=== PATIENT | female | born 1950 | race Caucasian/White ===

== ENCOUNTER → 2017-07-30 | Outpatient (CLI) | payer OTHER, MEDICAID ==
[~2017-07-30] MED LIST: ACETAMINOPHEN325 M1 PO; ADULT LOW DOSE81 MG PO; ANTIPYRINE-BENZ10 ML OT; APAP/CODEINE ELI5 M1 PO; BACTRIM DS TAB1 EACH PO; CHERACOL COUGH120 ML PO; CLINDAMYCI75 MG/5 M1 PO; HYDROCODONE-AP1 EAC6 PO; IBUPROFEN 600600 M1 PO; LOVENOX SC; MEDROL DOSPAK21 TA1 PO; MEDROL DOSPAK21 TAB PO; NOHOMEMEDICATIONS; NORCO 5-325 TA1 EACH PO; OMEPRAZOLE 20 M20 M1 PO; OXYCODONE HCL5 M1 PO; ROLAIDS CHEWAB1 EACH PO; TESSALON PERLE100 MG PO; ZOFRAN4 MG PO; ZPAK PO
== END ==
LOC: M.RAD 11:35
DX: J11.1 Influenza due to unidentified influenza virus with other respiratory manifestations (principal); J98.11 Atelectasis

== ENCOUNTER → 2018-02-04 | Outpatient (CLI) | payer MEDICARE, MEDICAID | LOC: M.RAD 11:50 | DX: M77.32 Calcaneal spur, left foot (principal); M79.672 Pain in left foot ==

== ENCOUNTER → 2018-09-26 | Outpatient (CLI) | payer MEDICARE, MEDICAID | LOC: M.RAD 14:30 | DX: M85.89 Other specified disorders of bone density and structure, multiple sites (principal); Z78.0 Asymptomatic menopausal state ==

== ENCOUNTER 2019-02-09 07:18 | Inpatient (IN) | payer MEDICARE, MEDICAID ==
[2019-01-31 10:32] LABS: ABSOLUTE BASOPHILS 0.1 thou/uL (0.0-0.2); ABSOLUTE EOSINOPHILS 0.2 thou/uL (0.0-0.7); ABSOLUTE LYMPHOCYTES 1.7 thou/uL (0.8-5.3); ABSOLUTE MONOCYTES 0.3 thou/uL (0.0-1.2); ABSOLUTE NEUTROPHILS 3.5 thou/uL (1.6-8.1); BASOPHILS 1.8 %; EOSINOPHILS 2.7 %; HEMATOCRIT 43.4 % (37.0-47.0); HEMOGLOBIN 14.3 gm/dL (12.0-15.0); MCV 78.6 fL (80.0-100.0); MONOCYTES 4.8 %; MPV 6.8 fl. (7.2-11.1); NUCLEATED RBCS 0 /100WBC; PLATELET COUNT* 262 thou/uL (150-400); POLYS 60.7 %; RBC 5.52 mil/uL (4.20-5.00); RDW-CV 15.9 % (10.5-14.5); WBC 5.8 thou/uL (4.0-11.0)
[2019-01-31 10:36] LABS: CALCIUM 8.5 mg/dL (8.5-10.1); CREATININE 1.1 mg/dL (0.6-1.3); POTASSIUM 3.3 mmol/L (3.5-5.1)
[2019-01-31 10:37] LABS: APTT 28.9 Seconds (25.0-31.3); INR 1.1; PROTIME 10.8 Seconds (9.20-11.50)
[2019-01-31 10:41] LABS: ALBUMIN 3.3 g/dL (3.4-5.0); TOTAL BILIRUBIN 0.7 mg/dL (<0.1-1.0); TOTAL PROTEIN 7.3 g/dL (6.4-8.2)
[2019-01-31 11:28] LABS: ESR (SEDRATE) 5 mm/hr (0-30)
--- NOTE | 2019-01-31 12:15 | EKG ---
[place] [address] ELECTROCARDIOGRAM REPORT Name: ABRILLAYNE Room: [facility]#: [id number] Admission: Attend Phys: Robbie Munoz, Discharge: Date of : 46 Report #: [id number] THIS REPORT FOR: //name// [facility] Test Date: 2019-01-31 Test Time: 11:23:10 Pat Name: LAYNE SAMUELS Department: Room: Gender: F Row Boss Hoeing: : 1950 Requested By: Robbie Munoz Order Number: [id number] Reading MD: Erickson Villanueva Measurements Intervals [place] Rate: 77 P: 28 NM: 214 QRS: 14 QRSD: 99 T: 67 QT: 393 QTc: 445 Interpretive Statements Sinus rhythm Borderline prolonged NM interval Borderline T wave abnormalities Compared to ECG 01/27/2010 10:23:15 T-wave abnormality now present Sinus bradycardia no longer present Electronically Signed On 01-31-2019 12:15:11 CDT by Erickson Villanueva [email or web address] <ELECTRONICALLY SIGNED> By: Erickson Villanueva MD, [facility] 01/31/19 1215 1123 [id number] Erickson Villanueva MD, [facility] /EPI
[~2019-02-09] VITALS: Ht 175.3 cm; Wt 81.2 kg
[2019-02-09 07:49] VITALS: BP 138/101
[2019-02-09 13:30] VITALS: BP 128/65
[2019-02-09 16:49] VITALS: BP 130/85
--- NOTE | 2019-02-09 17:40 | NUR ---
SHEREE TARRIVED FROM SURGERY THIS AFTERNOON. PATIENT RESTING IN BED. PATIENT HAS DENIED ANY PAIN. PATIENT UP WITH PHYSICAL THERAPY TO BEDSIDE COMMODE, TOLERATED WELL. PATIENT HAS FAIR APPETITE. PATIENT DENIES ANY NEEDS AT THIS TIME. CALL LIGHT WITHIN REACH. WILL CONTINUE TO MONITOR.
[2019-02-09 20:05] VITALS: BP 140/82
[2019-02-10] VITALS: BP 142/91
[2019-02-10 04:00] VITALS: BP 115/76
--- NOTE | 2019-02-10 04:23 | NUR ---
PATIENT HAS REMAINED ALERT AND ORIENTED X 4 THROUGHOUT THE SHIFT AND RESTING WELL ON HOURLY ROUNDS. ROOM AIR WITH CONTINUOUS PULSE-OX. SATS GREATER THAN 92%. VITAL SIGNS STABLE. DRESSING RIGHT KNEE CLEAN AND DRY. BILAT KARINA HOSE AND FOOT PUMPS. ICE PACK TO INCISION. PATIENT HAS BEEN VERY ACTIVE IN BED EXERCISES INDEPENDENTLY( FOOT PUMPS AND QUAD SETS) AND USING INCENTIVE SPIROMETER WHEN AWAKE. MEDICATED FOR MINAMAL RIGHT KNEE PAIN X 2 THIS SHIFT TO GOOD EFFECT. CPM INITIATED HS WITH PATIENT TOLERATING WELL. UP TO BSC WITH MIN ASSIST, GAIT BELT AND WALKER. ADEQUATE VOIDS. PASSING GAS. NO NAUSEA. CONTINUE TO MONITOR.
[2019-02-10 04:40] LABS: ABSOLUTE LYMPHOCYTES 1.3 thou/uL (0.8-5.3); ABSOLUTE MONOCYTES 0.8 thou/uL (0.0-1.2); ABSOLUTE NEUTROPHILS 7.6 thou/uL (1.6-8.1); BASOPHILS 0.2 %; HEMATOCRIT 36.6 % (37.0-47.0); LYMPHOCYTES 13.6 %; MCH 25.6 pg (26.0-34.0); MCHC 32.7 g/dL (28.0-37.0); MCV 78.3 fL (80.0-100.0); MONOCYTES 8.1 %; MPV 7.1 fl. (7.2-11.1); NUCLEATED RBCS 0 /100WBC; PLATELET COUNT* 248 thou/uL (150-400); POLYS 78.1 %; RBC 4.68 mil/uL (4.20-5.00); WBC 9.7 thou/uL (4.0-11.0)
[2019-02-10 04:51] LABS: CALCIUM 8.4 mg/dL (8.5-10.1); CREATININE 0.9 mg/dL (0.6-1.3); MAGNESIUM 1.7 mg/dL (1.8-2.4)
[2019-02-10 07:50] VITALS: BP 121/79
--- NOTE | 2019-02-10 08:53 | OP ---
[address] [address] OPERATIVE REPORT Name: LAYNE SAMUELSN Room: [address] [place] .R.#: [id number] Admission: 02/09/19 Attend Phys: Tay Jones Discharge: Date of : 46 Report #: [id number] THIS REPORT FOR: //name// CC: Samra Iniguez DICTATED BY: Gagan Spaulding DO DATE OF SERVICE: 02/09/2019 PREOPERATIVE DIAGNOSIS: Right knee severe degenerative joint disease. POSTOPERATIVE DIAGNOSIS: Right knee severe degenerative joint disease. OPERATION PERFORMED: Right total knee arthroplasty. SURGEON: Robbie Munoz DO. ASSISTANTS: Gagan Spaulding DO and Vince Landry DO ANESTHESIA: General plus local infiltration. ESTIMATED BLOOD LOSS: 150 mL. ANTIBIOTICS: 2 grams IV Ancef given preoperatively. FINDINGS: Tricompartmental severe arthritic changes with mild valgus deformity. There was complete loss of cartilage on both the medial and lateral joints as well as patellofemoral involvement. DRAINS: None. SPECIMENS: None. COMPLICATIONS: None. CONDITION: Stable. DISPOSITION: PACU to Ortho floor. IMPLANTS: The MicroPort Evolution total knee system was utilized with the following components: 1. A size 5 cruciate retained femoral component. 2. A size 5 tibial baseplate. 3. A 12 mm thick ultrahigh molecular weight polyethylene insert. 4. A size 32 mm tri-peg patellar component. [facility] [address] [place] [address] OPERATIVE REPORT Name: LAYNE SAMUELS Room: [address] M.R.#: [id number] Admission: 02/09/19 Attend Phys: Tay Jones Discharge: Date of : 46 Report #: [id number] 5. We used Yanet Simplex bone cement with tobramycin. OPERATIVE INDICATIONS: The patient is a pleasant 68-year-old female who had had longstanding right knee pain. She had severe degenerative joint disease, which was confirmed on x-ray findings. She has tried and failed conservative treatment over the years including intra-articular steroid injections and PRP injections, anti-inflammatory medications by mouth, and activity modifications, and physical therapy. She had had a previous left total knee arthroplasty and had done well with this. She did get to the point where she was requesting operative treatment. Risks, indications, and treatment alternatives were once again reviewed with the patient. The patient showed good understanding and elected to proceed with the operation as planned today. DESCRIPTION OF PROCEDURE: The patient was identified in the preoperative holding area where her questions were answered. The right knee was confirmed by the patient to be the operative side marked. She was transferred to the operating suite and placed on the operating room table in the supine position where general anesthesia was then induced. A well-padded pneumatic tourniquet was placed on the right proximal thigh, this was inflated to 300 mmHg for a total of 73 minutes throughout the procedure. The right lower extremity was then sterilely prepped and draped in the usual fashion. A time-out was then performed to confirm that our safety checklist had been completed and everyone in room was in agreement. A standard midline incision was marked out over the anterior aspect of the knee. Sharp dissection was then carried down through the skin and the subcutaneous tissues down to the level of the extensor mechanism. A new blade was then used to make a standard medial parapatellar arthrotomy. A small flap was developed on the subperiosteal proximal tibia. The anterior meniscus was excised. The patella was then everted and the knee was hyperflexed. The entry drill was used on the distal femur to gain access to the femoral canal. The intramedullary distal femur cutting block was then placed and pinned into position. This was set to resect 12 mm at 5 degrees of valgus. This was confirmed to be an appropriate cut with an tomy wing. The cut was then made with a reciprocating saw and this bony cut surface was removed. We then sized the femur anterior to posterior utilizing the sizing guide. The 3-degree external rotation holes were then drilled, these were confirmed to be in appropriate rotation in relation to the transepicondylar and posterior condylar axis. The appropriate 4-in-1 cutting block was then impacted on to the distal femur and the cuts were made sequentially through the block beginning with anterior, then posterior, and then the chamfer cuts. This did give a nice flush cut surface with the anterior cortex and appropriate resection of the posterior condyles. The bony cut surfaces were then removed. We then proceeded to our proximal tibia cut. The extramedullary tibial guide was aligned in all planes and pinned into position. We confirmed appropriate resection with an tomy wing as well as a drop jose de jesus. The collateral ligaments were protected as were the popliteal structures and the patellar tendon. The cut was then made through the capture block with the reciprocating saw. [place] [address] OPERATIVE REPORT Name: LAYNE SAMUELS Room: [address] [place] .R.#: [id number] Admission: 02/09/19 Attend Phys: Tay Jones Discharge: Date of : 46 Report #: [id number] then removed. At this time we removed all the excess osteophytes as well as the ACL, PCL and meniscal remnants. The knee was taken in full extension and the extension block was found to fit snugly though we did have full extension. The knee was then once again taken to full flexion, the proximal tibia was sized and the tibial baseplate was pinned into position confirming the appropriate rotation with the drop jose de jesus. The femur trial was then impacted into position and the trochlear cut was made through the trial implants. The trochlea insert was then placed. The 10 mm spacer was then placed and the knee was taken through full range of motion and found to have full extension and was balanced in both the sagittal and coronal planes. Attention was then taken to the patella where there were significant degenerative changes. We did proceed with resurfacing. The freehand technique was used with a reciprocating saw to resect approximately 8 mm thickness of bone. The patella was then sized and the peg holes were drilled through the guide. The appropriate sized patellar button trial was then placed through full range of motion and found to be tracking appropriately. This was then removed as well was the trial insert and the trial femur. The knee was hyperflexed. The proximal tibia was then prepared for final implantation by reaming and punching the proximal tibia. All the trial implants were then removed and the knee was thoroughly lavaged utilizing the pulsatile lavage. The posterior capsule was injected with the anesthetic cocktail. This was also spread throughout the periosteum and some of the surrounding subcutaneous tissues. The bone cement was mixed on the backtable, the bony cut surfaces were well dried and exposed. The bone cement was then applied to the undersurface of the final components as well as pressurized within the inner stitches of the bone. The final implants were then impacted in position beginning with the tibia, followed by the femur and finally the patella was clamped into position. All the excess bone cement was then removed. The 12 mm insert was placed and the knee was found to have full extension and was both balanced in the sagittal and coronal planes. The knee was held in full extension and pressurized while the cement was allowed to dry. Topical TXA was placed at this time and allowed to sit for at least 5 minutes. Once the bone cement was completely dry, the knee was taken once again through range of motion. The trial insert was removed and the final 12 mm insert was placed. The knee was finally taken through range of motion and found to have full flexion, extension and balance in the sagittal and coronal planes. The knee was once again copiously irrigated. The tourniquet was deflated, there was minimal bleeding, this was controlled with cautery. The knee was then placed in 90 degrees of flexion and a layered closure was then performed beginning with #1 Vicryl in a [id number] fashion for the capsular layer, this was then reinforced with a running #1 Stratafix suture. The subcutaneous layer was then closed with buried interrupted 2-0 Vicryl sutures. The skin was then held together with a 3-0 Stratafix suture. Skin glue was then applied over the incision, this was allowed to dry, and then a sterile Mepilex bandage was applied. KARINA hose were also applied. The sponge and needle counts were correct x 2. The patient was awakened from general anesthetic and transferred to the PACU in stable condition. [address] [address] OPERATIVE REPORT Name: LAYNE SAMUELS Room: [address] M.R.#: [id number] Admission: 02/09/19 Attend Phys: Tay Jones Discharge: Date of : 46 Report #: [id number] ATTESTATION: Dr. Munoz was present for the entirety of the procedure including all the vital decision making processes. <ELECTRONICALLY SIGNED> By: Pancho Linares DO 02/10/19 0853 1225 [id number] Munoz DO /nt
[2019-02-10 09:43] VITALS: BP 121/79
[2019-02-10] MEDS ORDERED: ELIQUIS5 MG PO (09:55)
[2019-02-10] MEDS ORDERED: DOK PLUS TABLE1 EACH PO (09:56)
[2019-02-10] MEDS ORDERED: PERCOCET PO (10:10)
[2019-02-10] MEDS ORDERED: NORCO 5-325 TA1 EAC1 PO (10:10)
[2019-02-10] MEDS ORDERED: ASPIR-TRIN325 MG PO (10:15)
--- NOTE | 2019-02-10 12:14 | NUR ---
SW met with pt to complete initial assessment, introduce self, and SW role and discuss safe dc planning as pt plans to be ready to dc today. Pt alert, oriented, pleasant. Pt lives at home alone, independently normally, and will have her 2 sisters stay with pt at dc for 2 wks. Pt explained that her sisters are retired, one was a RN and the other an EMT. Pt also has a supportive son nearby to assist if/when needed. Pt has a 4 ww with a seat and does not want a standard rw ordered for her at this time. Pt agreeable to , pt does not recall the name of the agency she used 9 years ago and no record in any previous records at this hospital anyway. SW to provide options and arrange prior to pt dc. Pt to have Eliquis at dc, SW faxed script to [facility] and will call for cost of med to make sure whether or not pt will need rx assistance information. SW to continue to follow to assist with finalizing safe dc plan.
--- NOTE | 2019-02-10 12:19 | NUR ---
RECIEVED O.T. EVAL AND TX ORDERS. WILL DEFER TO P.T. AT THIS TIME. PLEASE ORDER FURTHER O.T. SERVICES IF NEEDED.
[2019-02-10 13:07] VITALS: BP 121/79
--- NOTE | 2019-02-10 16:03 | NUR ---
PATIENT UTILIZING CPM X 2 THIS SHIFT. PRN HYDROCODONE GIVEN FOR PAIN X 2 WITH GOOD RELIEF NOTED. IV DC'D. UP WITH SBA AND WALKER AND GAIT BELT. PATIENT DISCHARGING AT THIS TIME. VERBALIZES UNDERSTANDING OF PAPERWORK AND SCRIPTS. COLIN .88 FOR PATIENT COST, PATIENT MADE AWARE. ALL BELONGINGS SENT WITH PATIENT. PATIENT TAKEN OUT VIA WHEELCHAIR.
== END 2019-02-10 16:12 | disposition home health service (06) | DRG 470 ==
LOC: M.SUR 07:18 → M.TBA 12:10 → M.ORTHSURG 12:10
PROVIDERS: Family Medicine; Orthopaedic Surgery; ADMIT Internal Medicine
PROC: 0SRC0J9 Replacement of Right Knee Joint with Synthetic Substitute, Cemented, Open Approach (ICD-10-PCS; principal; 2019-02-09)
DX: M17.11 Unilateral primary osteoarthritis, right knee (principal); K21.9 Gastro-esophageal reflux disease without esophagitis; Z96.652 Presence of left artificial knee joint; Z90.49 Acquired absence of other specified parts of digestive tract; Z90.5 Acquired absence of kidney; Z98.42 Cataract extraction status, left eye; Z98.41 Cataract extraction status, right eye; Z90.710 Acquired absence of both cervix and uterus; Z83.3 Family history of diabetes mellitus; Z82.49 Family history of ischemic heart disease and other diseases of the circulatory system; Z79.899 Other long term (current) drug therapy; M21.061 Valgus deformity, not elsewhere classified, right knee

== ENCOUNTER 2019-11-11 18:18 | Emergency (ER) | payer OTHER, MEDICAID ==
[~2019-11-11] VITALS: Ht 175.3 cm; Wt 85.7 kg
[~2019-11-11 18:18] MED LIST changes: +ASPIR-TRIN325 MG PO; +DOK PLUS TABLE1 EACH PO; +ELIQUIS5 MG PO; +NORCO 5-325 TA1 EAC1 PO; +PERCOCET PO
[2019-11-11 19:37] LABS: ABSOLUTE BASOPHILS 0.1 thou/uL (0.0-0.2); ABSOLUTE EOSINOPHILS 0.2 thou/uL (0.0-0.7); ABSOLUTE LYMPHOCYTES 2.3 thou/uL (0.8-5.3); ABSOLUTE MONOCYTES 0.4 thou/uL (0.0-1.2); ABSOLUTE NEUTROPHILS 3.4 thou/uL (1.6-8.1); BASOPHILS 1.2 %; HEMATOCRIT 40.4 % (37.0-47.0); HEMOGLOBIN 13.6 gm/dL (12.0-15.0); MCH 26.3 pg (26.0-34.0); MCHC 33.7 g/dL (28.0-37.0); MONOCYTES 6.7 %; MPV 6.8 fl. (7.2-11.1); NUCLEATED RBCS 0 /100WBC; PLATELET COUNT* 253 thou/uL (150-400); POLYS 53.1 %; RBC 5.19 mil/uL (4.20-5.00); RDW-CV 16.1 % (10.5-14.5); WBC 6.4 thou/uL (4.0-11.0)
[2019-11-11 19:55] LABS: CALCIUM 8.6 mg/dL (8.5-10.1); CREATININE 1.1 mg/dL (0.6-1.3); POTASSIUM 3.1 mmol/L (3.5-5.1)
[2019-11-11 20:01] LABS: ALBUMIN 3.2 g/dL (3.4-5.0); TOTAL BILIRUBIN 0.7 mg/dL (<0.1-1.0)
[2019-11-11 20:14] LABS: URINE BILIRUBIN NEGATIVE (Negative); URINE BLOOD NEGATIVE (Negative); URINE COLOR YELLOW; URINE GLUCOSE-RANDOM NEGATIVE (Negative); URINE KETONES NEGATIVE (Negative); URINE LEUKOCYTES-REFLEX 1+ (Negative); URINE NITRITE-REFLEX NEGATIVE (Negative); URINE PROTEIN NEGATIVE (Negative); URINE SPECIFIC GRAVITY 1.025 (1.005-1.030)
[2019-11-11 20:16] LABS: URINE CLARITY HAZY
[2019-11-11 20:22] LABS: SQUAMOUS >10 Many /LPF (0-3)
[2019-11-11 20:24] LABS: CASTS None Seen /LPF (None Seen); CRYSTALS None Seen /LPF (None Seen); URINE RBC None Seen /HPF (0-2); URINE WBC-REFLEX 6-15 Few /HPF (0-5)
[2019-11-11] MEDS ORDERED: NORCO 5-325 TA1 EAC1 PO (21:47)
[2019-11-11] MEDS ORDERED: KEFLEX500 M1 PO (21:47)
[2019-11-11 22:03] VITALS: BP 143/81
== END 2019-11-11 22:03 | disposition home or self-care (01) ==
LOC: M.ERS 18:18
PROVIDERS: Nurse Practitioner Family
DX: N39.0 Urinary tract infection, site not specified (principal); N12 Tubulo-interstitial nephritis, not specified as acute or chronic; K21.9 Gastro-esophageal reflux disease without esophagitis; Z89.512 Acquired absence of left leg below knee; Z90.49 Acquired absence of other specified parts of digestive tract; Z90.710 Acquired absence of both cervix and uterus